=== PATIENT | female | born 1960 | race Caucasian/White ===

== ENCOUNTER 2024-05-27 03:14 | Day surgery (SDC) | payer OTHER, SELFPAY ==
[2024-05-13 11:48] VITALS: BMI 29.5
[2024-05-27 11:50] VITALS: BP 126/93; PULSE 109; RESP 16; TEMP 36.1; O2SAT 97
--- NOTE | 2024-05-27 11:53 | WPDANESEPPF ---
Anes - Initial Pre Proc Eval Procedure: Operation Date: 05/27/24 13:00 Proposed Procedures p Esophagogastroduodenoscopy&Screen Colon - Nick Quinn MD Date/Time: 05/27/24 11:53 Surgeon: Nick Quinn MD Pre Op Diagnosis: neoplasm screening, GERD without esophagitis Patient Data Age: 64 Gender: F Height: 1.63 m Weight: 78 kg Allergies Allergy/AdvReac Type Severity Reaction Status Date / Time cyclobenzaprine Allergy Palpitation Verified 05/27/24 11:48 s meperidine [From Demerol] Allergy Palpitation Verified 05/27/24 11:48 s Penicillins Allergy Swelling Verified 05/27/24 11:48 Home Medications Medication Instructions Recorded Confirmed Type amitriptyline 10 mg tablet 30 mg PO DAILY 05/13/24 05/13/24 History atorvastatin 80 mg tablet 80 mg PO DAILY 05/13/24 05/13/24 History ezetimibe 10 mg tablet 10 mg PO DAILY 05/13/24 05/27/24 History hydroxyzine HCl 25 mg tablet 25 mg PO Q6H 05/13/24 05/27/24 History metoclopramide HCl 10 mg tablet 10 mg PO USEASDIRECTD 05/13/24 05/13/24 History omeprazole 40 mg capsule,delayed 40 mg PO DAILY 05/13/24 05/27/24 History release sertraline 25 mg tablet 25 mg PO DAILY 05/13/24 05/27/24 History trazodone 100 mg tablet 100 mg PO DAILY 05/13/24 05/27/24 History Patient hx anesthesia problems: none Family hx anesthesia problems: none Results Review: All pre-operative results and documents have been reviewed as part of the pre-operative evaluation. FORMERLY [facility], [facility] Social History Social History Smoking packs per day: 1 Smoking cigarettes per day: 20.0 Years smoked: 50 Smoking pack-years: 50.00 Smoking status: Current every day smoker Tobacco type: cigarettes Alcohol intake: current Alcohol use details: ONE BEER EVERY 2 WEEKS Substance use: never Substance use type: does not use Living arrangements: with family Spiritual care concerns: No Anes - Eval Final PreProcedure Day of Procedure 05/27/24 11:53 Patient weight: normal Heart: regular rate and rhythm Lungs: clear to auscultation Airway: Mallampati scale class II Neurological: alert and oriented Last oral intake: >/= 8 hours ASA classification: III Emergent: no Anesthetic plan: proceed Anesthesia type and monitoring: general GIVS and standard monitoring Results Review: All pre-operative results and documents have been reviewed as part of the pre-operative evaluation. Informed Consent: The patient's anesthetic plan and its attendant risks and benefits were discussed with the patient/family/POA. Questions were solicited and answers provided to the satisfaction of the patient/family/POA.
[2024-05-27] MEDS: LACTATED RINGERS 1,000 ML 150 ML IV CONT (12:00)
--- NOTE | 2024-05-27 12:46 | PM.HPGS ---
History of Present Illness History of Present Illness Consent: Risks, benefits, and alternatives have been discussed and questions answered. Patient agrees to proceed with procedure. Chief complaint: neoplasm screening, GERD without esophagitis Narrative: Magdalena Beard is a 64 year old female with h/o gastroparesis on reglan, also IBS-D and colon polyps, last colonoscopy about 2 years ago. Also needs EGD. Review of Systems Review of Systems: All systems reviewed & are unremarkable except as noted in HPI and below PMFSH Past Medical History Medical History (Updated 05/27/24 @ 12:48 by Nick Quinn MD) Adenomatous colon polyp Gastroparesis Social History Social History Smoking packs per day: 1 Smoking cigarettes per day: 20.0 Years smoked: 50 Smoking pack-years: 50.00 Smoking status: Current every day smoker Tobacco type: cigarettes Alcohol intake: current Alcohol use details: ONE BEER EVERY 2 WEEKS Substance use: never Substance use type: does not use Living arrangements: with family Spiritual care concerns: No Meds Home Medications and Allergies Home Medications Medication Instructions Recorded Confirmed Type amitriptyline 10 mg tablet 30 mg PO DAILY 05/13/24 05/13/24 History atorvastatin 80 mg tablet 80 mg PO DAILY 05/13/24 05/13/24 History ezetimibe 10 mg tablet 10 mg PO DAILY 05/13/24 05/27/24 History hydroxyzine HCl 25 mg tablet 25 mg PO Q6H 05/13/24 05/27/24 History metoclopramide HCl 10 mg tablet 10 mg PO USEASDIRECTD 05/13/24 05/13/24 History omeprazole 40 mg capsule,delayed 40 mg PO DAILY 05/13/24 05/27/24 History release sertraline 25 mg tablet 25 mg PO DAILY 05/13/24 05/27/24 History trazodone 100 mg tablet 100 mg PO DAILY 05/13/24 05/27/24 History Allergies Allergy/AdvReac Type Severity Reaction Status Date / Time cyclobenzaprine Allergy Palpitation Verified 05/27/24 11:48 s meperidine [From Demerol] Allergy Palpitation Verified 05/27/24 11:48 s Penicillins Allergy Swelling Verified 05/27/24 11:48 Vital Signs Vital Signs - 24 hr 05/27/24 11:50 Temperature 97 F L Pulse Rate 109 H Respiratory Rate 16 Blood Pressure 126/93 H Pulse Oximetry 97 Oxygen Delivery Room Air Exam Const: General: comfortable and no acute distress HENMT: Face/Nose/Sinus: Normal nares present Eyes: General: appearance normal, both eyes and all related structures Neck: Neck: no JVD Resp: Auscultation: clear to auscultation bilaterally Cardio: Rate: regular rate Rhythm: regular rhythm GI: Inspection: non-distended GI Palp: Yes Soft to palpation Skin: General skin exam: normal color Neuro: General: gait normal Speech: normal speech Extrem: General: normal to inspection Psych: Mental Status: mental status grossly normal Assessment and Plan Assessment and plan (1) Gastroparesis: Code(s): K31.84 - Gastroparesis Status: Acute Assessment and Plan: on reglan egd today (2) Adenomatous colon polyp: Code(s): D12.6 - Benign neoplasm of colon, unspecified Status: Acute Assessment and Plan: colonoscopy
[2024-05-27 13:13] VITALS: BP 114/73; PULSE 80; RESP 20; O2SAT 95
[2024-05-27 13:23] VITALS: BP 137/91; PULSE 86; RESP 20; O2SAT 98
[2024-05-27 13:33] VITALS: BP 146/96; PULSE 78; RESP 19; O2SAT 98
== END 2024-05-27 13:45 | disposition home or self-care (01) ==
PROVIDERS: PCP Physician Assistant Medical; Referring Provider Physician Assistant Medical; Visit Provider Internal Medicine Gastroenterology
PROC: 0DJ08ZZ Inspection of Upper Intestinal Tract, Via Natural or Artificial Opening Endoscopic (ICD-10-PCS; CPT 43235; principal; 2024-05-27 13:00)
DX: Z12.11 Encounter for screening for malignant neoplasm of colon (principal); D12.5 Benign neoplasm of sigmoid colon; K63.5 Polyp of colon; K64.8 Other hemorrhoids; K57.30 Diverticulosis of large intestine without perforation or abscess without bleeding; K52.832 Lymphocytic colitis; K29.50 Unspecified chronic gastritis without bleeding; K31.89 Other diseases of stomach and duodenum; K21.9 Gastro-esophageal reflux disease without esophagitis; K31.84 Gastroparesis; Z86.010 Personal history of colon polyps; F17.210 Nicotine dependence, cigarettes, uncomplicated
CPT/HCPCS: 43239; 45380; 45385; 88305; J2704; J7120